=== PATIENT | female | born 1985 ===

== ENCOUNTER 2016-07-01 16:33 | Emergency (ER) | payer SELFPAY ==
[2016-07-01 16:45] VITALS: BMI 24.7
--- NOTE | 2016-07-01 17:35 | OBHP ---
Datetime: 07/01/2016 17:15 IP Adm Impression: , intrauterine IP Admit Plan: Discharge home Admit Comment, IP Provider: IUP at 30w c/o feeling nausea since yesterday. She had episode of vomiting. No abd pain. Tolerated PO fluids - water and juice today. No CTX; no VB; +FM PMH: denies PSH: denies NKA PSoH denies smoking ETOH drugs care CF denies complications EDC September 10 A: IUP at 30w gastroenteritis PLAN: PO fluids...tolerated...will send home... If increased symtpoms and cannot tolerate she will come back. labor isntructions...follow up CF as scheduled Pelvic Type - PN: Not Done Extremities - PN: Normal Abdomen - PN: Normal Back - PN: Normal Breast - PN: Normal Lungs - PN: Normal Heart - PN: Normal Thyroid - PN: Normal Neurologic - PN: Normal HEENT - PN: Normal General - PN: Normal FHR - Baseline A Provider: 150 Contraction Comments Provider: none Comments, ACOG Physical Exam: ROS: General: no fatigue no weakness HEENT: no SANTAMARIA; no visual dist CV: no CP; no palpitaions Resp: no OSb; no cough GI: Some N/V; no diarrhea : No F/U/D MS: no joint pain Pool Provider: Negative IP Hx Assessment: The History has been Reviewed and is Current EGA AdmitDate IP: 30.0 Vital Signs Provider: Reviewed IP Chief Complaint: Other NICHD Variability Prov Fetus A: Moderate 6-25bpm NICHD Accel Fetus A IP Provider: 15X15 FHR Category Provider Fetus A: Category I NICHD Decel Fetus A IP Provider: None Genitourinary Exam: Normal DTRs - PN: Not Done
--- NOTE | 2016-07-01 17:37 | OBDCSUM ---
Datetime: 07/01/2016 17:13 Discharged to, Provider: Home Follow up at, Provider: [facility] Disch Instr Activity: Normal activity Disch Instr Diet: Regular Discharge Time: 07/01/2016 17:19 Follow up in weeks, Provider: 07/08/16 Disch Referrals: None Discharge Diagnosis Prov Other: Gastroenteritis
== END 2016-07-01 17:41 | disposition home or self-care (01) ==
LOC: H.EROB2 16:33
DX: O47.03 False labor before 37 completed weeks of gestation, third trimester (principal); Z3A.30 30 weeks gestation of pregnancy

== ENCOUNTER 2016-08-20 23:54 | Emergency (ER) | payer SELFPAY | END 2016-08-21 01:25 | disposition home or self-care (01) | LOC: H.EROB2 23:54 | DX: O47.1 False labor at or after 37 completed weeks of gestation (principal); Z3A.38 38 weeks gestation of pregnancy ==

== ENCOUNTER 2016-09-11 20:45 | Emergency (ER) | payer SELFPAY | END 2016-09-11 21:45 | disposition home or self-care (01) | LOC: H.EROB2 20:45 | DX: O47.1 False labor at or after 37 completed weeks of gestation (principal); O48.0 Post-term pregnancy; Z3A.40 40 weeks gestation of pregnancy ==

== ENCOUNTER 2016-09-11 23:56 | Inpatient (IN) | payer MEDICAID, SELFPAY ==
[2016-09-12 00:30] VITALS: BMI 23.2
[2016-09-12] MEDS ORDERED: Lactated Ringer's 1,000 ML IV SCH ×3 (00:30→22:29)
[2016-09-12] MEDS: Lactated Ringer's 1,000 ML IV SCH ×3 (01:48→09:45)
[2016-09-12] MEDS ORDERED: Nalbuphine 20 mg/ml Inj (1 ml) IVP PRN (04:17)
[2016-09-12] MEDS ORDERED: Nalbuphine 20 mg/ml Inj (1 ml) ONE (04:25)
[2016-09-12 05:01] VITALS: RESP 18
[2016-09-12 06:05] LABS: BASO # 0.1 K/uL (0.0-0.2); BASO % 0.7 % (0.0-2.0); EOS # 0.1 K/uL (0.0-0.7); EOS % 0.7 % (0.0-4.0); HEMATOCRIT 39.8 % (34.0-47.0); LYMPH # 2.4 K/uL (1.0-4.3); LYMPH % 26.3 % (20.0-40.0); MEAN CELL VOLUME 91.1 fl (81.0-99.0); MEAN CORPUSCULAR HEMOGLOBIN 29.8 pg (27.0-31.0); MEAN CORPUSCULAR HGB CONC 32.7 g/dL (33.0-37.0); MEAN PLATELET VOLUME 11.3 fl (7.2-11.7); MONO # 0.5 K/uL (0.0-0.8); MONO % 6.1 % (0.0-10.0); NEUT # 5.9 K/uL (1.8-7.0); NEUT % 66.2 % (50.0-75.0); NRBC % 0.1 % (0.0-0.0); RED CELL DISTRIBUTION WIDTH 14.2 % (11.5-14.5)
[2016-09-12] MEDS ORDERED: Fentanyl/Bupivacaine HCl 250 ML EPI ONE (07:49)
[2016-09-12] MEDS ORDERED: Bupivacaine HCl 0.25% PF (10 ml) Inj ONE (07:49)
[2016-09-12] MEDS ORDERED: ePHEDrine 50 mg/ml Inj ONE (08:07)
--- NOTE | 2016-09-12 09:53 | OBHP ---
Datetime: 09/12/2016 04:20 IP Adm Impression: Term, intrauterine IP Admit Plan: Admit to unit; Initiate labor protocol Admit Comment, IP Provider: This is a 30 y/o at 40.2 weeks of GA with a LION 09/10/16 by LMP an d confirmed by 13 week US, complaining of CTX that began 8 hours ago. Pt was observed for [address] Xs now occurs every 4 minutes and 10/10 intensity. Pt reports pain is untolerable and requesting medi cation. + FM. Pt denies H/A, visual disturbances, vaginal bleeding, LOF or dysuria. NKDA PMHx: denied. PSHx: denied. OBHx: . SHx: No tobacco, alcohol or recreational drugs. A_P: IUP at 40.2 weeks GA with intense CTXs in latent labor. Pt will be admitted. Nubain ordered for pain management. Case discussed with Dr Sy OB outside salesperson. Negrito Simon PGY-1 Addendum: Patient had JOSAFAT. During observation, contractions become more intense and increasing in frequency . Patient requesting pain medication. Level of intensity, plan for admission for management of labor. Discussed with patient and all patient questions answered. Yossi Pelvic Type - PN: Adequate Extremities - PN: Normal Abdomen - PN: Normal Back - PN: Normal Lungs - PN: Normal Heart - PN: Normal Neurologic - PN: Normal HEENT - PN: Normal General - PN: Normal FHR - Baseline A Provider: 150 Gestation - Est Wks by US: 40.2 EGA AdmitDate IP: 40.3 IP Chief Complaint: Uterine contractions NICHD Variability Prov Fetus A: Moderate 6-25bpm NICHD Accel Fetus A IP Provider: 15X15 FHR Category Provider Fetus A: Category I NICHD Decel Fetus A IP Provider: None Dilatation, Provider: 1 Effacement, Provider: 0 Station, Provider: -3 Genitourinary Exam: Normal Datetime: 09/12/2016 00:32 Thyroid - PN: Normal Vital Signs Provider: Reviewed DTRs - PN: Not Done Datetime: 09/11/2016 21:35 Breast - PN: Normal Datetime: 08/21/2016 01:19 Membranes, Provider: Intact Comments, ACOG Physical Exam: examination was in presence of a marine operations coordinator. bimanual exam: cervix not dilated and no effacement and -3 station. Pool Provider: Negative
[2016-09-12] MEDS ORDERED: Oxytocin 30 units/LR 500ML 30 U/500 ML BAG IV ONE (10:36)
[2016-09-12] MEDS ORDERED: ceFAZolin 2 GM in Sodium Chloride 0.9% 100 ML IVPB ONE (17:02)
[2016-09-12] MEDS ORDERED: Lidocaine 2% PF (10 ml) Amp ONE (20:02)
[2016-09-12] MEDS ORDERED: Bupivacaine HCl 0.5% PF (30 ml) Inj ONE (20:03)
[2016-09-12] MEDS ORDERED: Ketamine 50 mg/ml Inj (10 ml) ONE (20:26)
[2016-09-12] MEDS ORDERED: Midazolam 2 MG/2 ML VIAL ONE ×2 (20:29→20:31)
[2016-09-12] MEDS ORDERED: Morphine 1 mg/ml preservative-free Inj(Duramorph) ONE (21:03)
[2016-09-12] MEDS ORDERED: Oxycodone/Acetaminophen 5/325 mg Tab PO PRN (21:38)
[2016-09-12] MEDS ORDERED: Oxytocin 30 units/LR 500ML 30 U/500 ML BAG IV SCH ×2 (21:38→22:29)
[2016-09-13 00:37] VITALS: BP 128/81; PULSE 103; O2SAT 96
[2016-09-13] MEDS ORDERED: Simethicone 80 mg Chewtab PO PRN (07:02)
[2016-09-13 07:47] LABS: HEMATOCRIT 32.8 % (34.0-47.0); MEAN CELL VOLUME 90.4 fl (81.0-99.0); MEAN CORPUSCULAR HEMOGLOBIN 30.8 pg (27.0-31.0); MEAN CORPUSCULAR HGB CONC 34.1 g/dL (33.0-37.0); RED CELL DISTRIBUTION WIDTH 14.3 % (11.5-14.5); WHITE BLOOD COUNT 15.8 K/uL (4.8-10.8)
--- NOTE | 2016-09-13 07:57 | OP ---
PROCEDURE DATE: 09/12/2016 PREOPERATIVE DIAGNOSIS: Intrauterine in 40 plus weeks, maternal request for primary , declined further trial of labor. POSTOPERATIVE DIAGNOSIS: Intrauterine in 40 plus weeks, maternal request for primary , declined further trial of labor. OPERATION PERFORMED: Primary left transverse section by Pfannenstiel skin incision. SURGEON: Dr. Eric Felder. SENIOR ARCHITECT/DESIGN MANAGER: Dr. Otero. TYPE OF ANESTHESIA: Epidural. ANESTHESIA ADMINISTERED BY: Dr. Lopez. OPERATIVE FINDINGS: Male infant. Vertex presentation. Apgars 9 and 9, weighing 3740 grams, normal uterus, tubes, and ovaries were identified. ESTIMATED BLOOD LOSS: 800 mL. URINE OUTPUT: Morales catheter put out approximately 350 mL of clear urine. IV FLUIDS: The patient received approximately 1 liter D5 OR intraoperatively. COMMENT: The patient notified by nurse. The patient no longer wanted to labor and was requesting primary delivery. I discussed the risks, benefits and alternatives of both vaginal delivery and section and after a thorough discussion, the patient declined trial of labor and opted for primary . Dr. Otero was the video production assistant of the procedure. He was instrumental in the care of the patient. He help create exposure, obtain hemostasis, he was helpful in delivering the and closure of the patient. Procedure would not had been possible without his assistance. DESCRIPTION OF PROCEDURE: After informed consent was obtained, the patient was taken to the operating room where epidural anesthesia was noted to be adequate. The patient was then prepped and draped in the usual sterile fashion. A Pfannenstiel skin incision was then made with the scalpel and carried down the underlying layer of fascia. The fascia was nicked in the midline. The fascial incision was then extended laterally with the curved Michaels scissors. The superior aspect of the fascial incision was then grasped with Partha clamps and elevated up and the rectus muscles were dissected off using both sharp and blunt dissection. Attention was then turned to the inferior aspect of the fascial incision, which in similar fashion was grasped with Partha clamps, elevated up and the rectus muscles were dissected off using both sharp and blunt dissection. The rectus muscles were then in the midline. The peritoneum identified and entered sharply with the Metzenbaum scissors. The peritoneal incision was then extended superiorly and inferiorly with good visualization of the bladder. The bladder blade was then inserted. The vesicouterine peritoneum was identified and entered sharply with the Metzenbaum scissors. The incision was then extended laterally and the bladder flap was created digitally. The bladder blade was then inserted and a low transverse incision was made with the scalpel. The uterine incision was then extended laterally with a bandage scissors. The 's head was then delivered atraumatically. The nose and mouth were suctioned to . The cord was clamped and cut. The infant was handed off to waiting pediatricians. The placenta was removed manually. The uterus was exteriorized and cleared of all clots and debris. The uterine incision was repaired with 0-Vicryl in a running locked fashion. The second layer of the same suture was used to obtain excellent hemostasis. The abdomen was then copiously irrigated. The irrigant was removed with a suction device. The uterus was returned to the abdomen. The gutters were cleared of all clots and debris. The uterine incision was reexamined, hemostasis was noted. The peritoneum was then closed with 2-0 Vicryl in a running fashion. The muscle was reapproximated with 0-Vicryl in an interrupted fashion. The fascia was closed with 0-Vicryl in a running fashion. The skin was closed with 4-0 needle. All sponge, lap, needle, and instrument counts were correct x2 and the patient was taken to the recovery room in awake in stable condition. Eric Felder MD
[2016-09-13] MEDS: Oxycodone/Acetaminophen 5/325 mg Tab PO PRN ×3 (08:31→20:10)
[2016-09-13] MEDS ORDERED: Docusate-Senna 50 mg-8.6 mg Tab PO SCH (22:00)
[2016-09-14] MEDS: Oxycodone/Acetaminophen 5/325 mg Tab PO PRN ×4 (00:09→20:03)
[2016-09-14] MEDS ORDERED: Docusate-Senna 50 mg-8.6 mg Tab PO SCH (08:32)
[2016-09-14 09:08] VITALS: TEMP 98.2
--- NOTE | 2016-09-14 10:43 | OBPPN ---
Datetime: 09/14/2016 08:15 PP Pain Prov: Within normal limits PP Nausea Prov: Denies PP Flatus Prov: Yes PP BM Prov: No PP Breasts Prov: Normal PP Heart Prov: Normal PP Lungs Prov: Normal PP Abdomen/Uterus Prov: Normal PP Lochia Prov: Normal PP Vulva/Perineum Prov: Normal PP CVA Tenderness Prov: Normal PP Extremities Prov: Normal PP C/S Incision Prov: Normal PP Progress Prov: Normal PP Comments Phys Exam Prov: not acute distress Lungs CTA B/L RRR, S1S2 Abd: Soft, uterus umb level, not distended. BS+. Incision clean and dry No calf tenderness Alert and oriented PP Impression Prov: Normal progression PP Plan Prov: Continue present management PP Progress Note Prov: S: Patient seen at bedside on POD2 in not acute distress. Denies CP, SOB, tracey f pain, palpitations, dizziness, nausea or vomiting. Lochia is less than menses. Pain controlled with pain meds. Tolerating PO diet well. No Flatus or BM yet. Breast and bottle feeding. C/O Bloating PE: See above A_P: 30 y/o in POD2 uncomplicated -C/w current plan -Motrin and percocet PRN for pain -Reg diet -Encourage ambulation and -Anticipated DC 09/15/16 Chance Carmen PGY2 The patient was seen with the resident and I agree with the notes Anticipate discharge in a.m. IP PP Procedures: None Vital Signs Provider PP: Reviewed; Within Normal Limits
[2016-09-15] MEDS: Oxycodone/Acetaminophen 5/325 mg Tab PO PRN ×2 (04:30→11:25)
--- NOTE | 2016-09-15 13:21 | OBDCSUM ---
Datetime: 09/15/2016 11:20 Discharged to, Provider: Home Follow up at, Provider: [facility] Disch Instr Activity: May be up to bathroom; May be up for meals; May Shower Disch Instr Diet: Regular Discharge Instructions, Provider: Specific instructions as noted Discharge Diagnosis, Provider: Term Delivered Discharge Time: 09/15/2016 12:00 Follow up in weeks, Provider: 1 week-10d Disch Referrals: None Discharge Instruct Comment, Prov: postop Contraception discussed, Prov: Yes Disch Activity Restrictions: No exercising; No lifting; No driving; No sexual activity; Nothing in v agina - [place], tampons, douche Discharge Comment, Provider: Encourage Ibuprofen 600 mg 1 tablet every 6 hours as neded for moderate pain Percocet 5/325mg 1 tab every 6 hours as needed if severe pain Follow up at your clinic in 1 week-10d. Contraception after Delivery: Undecided
--- NOTE | 2016-09-15 13:21 | OBPPN ---
Datetime: 09/15/2016 11:12 PP Nausea Prov: Denies PP Flatus Prov: Yes PP BM Prov: Yes PP Breasts Prov: Normal PP Heart Prov: Normal PP Lungs Prov: Normal PP Abdomen/Uterus Prov: Normal PP Lochia Prov: Normal PP Vulva/Perineum Prov: Normal PP CVA Tenderness Prov: Normal PP Extremities Prov: Normal PP C/S Incision Prov: Normal PP Progress Prov: Normal PP Comments Phys Exam Prov: not acute distress Lungs CTA B/L RRR, S1S2 Abd: Soft, uterus umb level, not distended. BS+. Incision clean and dry. steri-strips intact. no s igns of infection. No calf tenderness Alert and oriented PP Impression Prov: Normal progression PP Plan Prov: Discharge PP Progress Note Prov: 30 yo now on POD 3 seen at bed side and not acute distress. Denies CP, SOB, calf pain, palpitations, dizziness, nausea or vomiting. Lochia is less than menses. Pain control led with pain meds. Tolerating PO diet well. Pt reports +BM and flatus. Breast and bottle feeding. PE: See above A_P: 30 y/o in POD3 uncomplicated -Motrin and percocet PRN for pain -Reg diet -Encourage ambulation and -Discharge to home today. Sultan Lemon, PGY-1 OBH ADDENDUM: pt seen _ examined by me. agree with above assessment and plan. - benefits of reinforced. IP PP Procedures: None Vital Signs Provider PP: Reviewed
--- NOTE | 2016-09-17 09:02 | OBPPN ---
Datetime: 09/13/2016 07:47 PP Progress Note Prov: This is 30 y/o now who had a on 09/12/16 at 20:18 due to arres t of dilation. Pt evaluated ob bedside and feeling well. Pt afebrile, tolerating PO and trying breast feeding. Pain is tolerable with medications. Pt has NOT try to abulate yet. Pt denies H/A, CP, SOB, d ysuria, passing gasses and bowel movement. O: VS WNL. PE: Gen: A_O, resting comfortable on bed, NAD. Lungs: CTAB, No W/R/R. CV: RRR, S1 and S2 present. ABD: BS +, firm fundus below umbilicus, dressing is clean, dry and intact. EXT: non-tender calves. A_P: 30 y/o F POD 1, S/P . pt feeling well. consult offered. Will continue post-C section care. Pt encouraged to breast feed and ambulate. Negrito Simon PGY-1. Late entry for September 13 23:00pm OB Hospitalist note: This pt was seen and examined by me. Agree with above note. PADMINI
--- NOTE | 2016-09-24 13:41 | OBDS ---
DELIVERY PERSONNEL Delivery Doctor: Rena Felder MD Hvac Project Manager: Shakila David RN Anesthesiologist: Ngozi Lopez MD Resident: Aurora KESSLER MATERNAL INFORMATION Delivery Anesthesia: Epidural Medications in Delivery: Pitocin Estimated Blood Loss (ml): 800 Placenta Cultured: No Maternal Complications: None Provider Comments: See operative report LABOR SUMMARY EDC: 09/09/2016 00:00 No. Babies in Womb: 1 Attempted: No Labor Anesthesia: Epidural LABOR INFORMATION Reason for Induction: Not Applicable Onset of Labor: 09/11/2016 16:00 Oxytocin: Augmentation Group B Beta Strep: Negative Antibiotics # of Doses: 1 Antibiotics Time of Last Dose: 1930 Steroids Given: None Reason Steroids Not Administered: Not Applicable MEMBRANES Membranes Rupture Method: Artificial Rupture of Membranes: 09/12/2016 10:33 Length of Rupture (hrs): 9.92 Amniotic Fluid Color: Light Meconium Amniotic Fluid Amount: Moderate Amniotic Fluid Odor: Normal STAGES OF LABOR Stage 3 hrs: 0 Stage 3 min: 1 Total Time in Labor hrs: 28 Total Time in Labor min: 29 CSECTION DELIVERY Primary Indication: Other Other Primary Indication: mother's request CSection Urgency: Elective CSection Incidence: Primary Labor: Labor Elective: Elective CSection Incision: Lower Uterine Transverse BABY A INFORMATION Delivery Date/Time: 09/12/2016 20:28 Method of Delivery: Born in Route : No : N/A Forceps: N/A Vacuum Extraction: N/A Shoulder Dystocia : No SHOULDER DYSTOCIA BABY A Delivery Date/Time: 09/12/2016 20:28 PRESENTATION/POSITION BABY A Presentation: Cephalic PLACENTA INFORMATION BABY A Placenta Delivery Time : 09/12/2016 20:29 Placenta Method of Delivery: Expressed Placenta Status: Delivered SCORES BABY A Heart Rate 1 min: >100 bpm Resp Effort 1 min: Good Cry Reflex Irritability 1 min: Cough or Sneeze or Pulls Away Muscle Tone 1 min: Active Motion Color 1 min: Body [place], Extremities Blue Resuscitation Effort 1 min: Tactile Stimulation SCORE 1 MIN: 9 Heart Rate 5 min: >100 bpm Resp Effort 5 min: Good Cry Reflex Irritability 5 min: Cough or Sneeze or Pulls Away Muscle Tone 5 min: Active Motion Color 5 min: Body [place], Extremities Blue Resuscitation Effort 5 min: N/A SCORE 5 MIN: 9 INFANT INFORMATION BABY A Gestational Age at Delivery: 40.3 Gestational Status: Term Outcome : Liveborn Infant Condition : Stable Sex: Male IDENTIFICATION/MEDS BABY A ID Band Number: [id number] ID Band Location: Left Leg; Left Arm WEIGHT/LENGTH BABY A Infant Birthweight (gms): 3740 Weight (lb): 8 Weight (oz): 4 CORD INFORMATION BABY A No. Cord Vessels: 3 Nuchal Cord : N/A Cord pH Baby Arterial: n/a Cord pH Baby Venous: n/a Cord Blood Taken: Yes Suction: None ASSESSMENT BABY A Infant Complications: Extended Tachycardia Physical Findings at Delivery: Other Physical Findings Other: small ear hole Infant Respirations: Appears Normal Cooperative Extension Agent/ALS Called : No Infant Care By: Autumn/Dr Fuentes Transferred To: [facility]
--- NOTE | 2016-10-18 08:05 | OBHP ---
Datetime: 09/12/2016 04:20 EGA AdmitDate IP: 40.3
== END 2016-09-15 15:00 | disposition home or self-care (01) | DRG 766 ==
LOC: H.EROB2 23:56 → H.L&D 09-12 04:14 → H.OB/GYN 09-12 23:30
PROVIDERS: ADMIT Obstetrics & Gynecology; ATTEND Obstetrics & Gynecology
PROC: 10D00Z1 Extraction of Products of Conception, Low, Open Approach (ICD-10-PCS; principal; 2016-09-12)
PROC: 4A1HXCZ Monitoring of Products of Conception, Cardiac Rate, External Approach (ICD-10-PCS; 2016-09-12)
DX: O48.0 Post-term pregnancy (principal); O62.1 Secondary uterine inertia; Z3A.40 40 weeks gestation of pregnancy; Z37.0 Single live birth

== ENCOUNTER 2016-10-01 15:17 | Emergency (ER) | payer SELFPAY ==
[2016-10-01 15:18] VITALS: BMI 23.2
[2016-10-01 15:27] VITALS: BP 118/72; PULSE 82; RESP 16; TEMP 98; O2SAT 100
--- NOTE | 2016-10-01 15:46 | ED PDOC ---
HPI: Psych/Substance Abuse Time Seen by Provider: 10/01/16 15:29 Chief Complaint (Nursing): Psychiatric Evaluation Chief Complaint (Provider): Crisis evaluation History Per: Patient, Health Professor (Korean video damage appraiser Evelia #[phone]) History/Exam Limitations: no limitations Onset/Duration Of Symptoms: Days Current Symptoms Are (Timing): Still Present Suicide/Self Injury Attempted (Context): None Modifying Factor(s): None Additional Complaint(s): The patient is a 30 y/o female, 2 weeks post-, sent to the ED from [facility] for a crisis evaluation. Patient states she completed a questionnaire about depression at the clinic and was informed to come here. She does admit to feeling depressed but denies any suicidal ideation, homicidal ideation. She offers no medical complaints. PCP: [facility] Past Medical History Reviewed: Historical Data, Nursing Documentation, Vital Signs Vital Signs: Last Vital Signs Temp 98.0 F 10/01/16 15:21 Pulse 82 10/01/16 15:21 Resp 16 10/01/16 15:21 BP 118/72 10/01/16 15:21 Pulse Ox 100 10/01/16 15:21 - Medical History PMH: Depression - Surgical History Surgical History: No Surg Hx - Family History Family History: States: No Known Family Hx - Living Arrangements Living Arrangements: With Family - Social History Current smoker - smoking cessation education provided: No Alcohol: None Drugs: Denies - Home Medications Home Medications: Ambulatory Orders Medication Instructions Recorded Vit Calc,Iron,Folic 1 tab PO DAILY 09/12/16 [ Vitamins] Ibuprofen [Motrin Tab] 600 mg PO Q6H PRN #30 tab 09/15/16 oxyCODONE/Acetaminophen [Percocet 1 tab PO Q6 PRN #20 tab 09/15/16 5/325 mg Tab] - Allergies Allergies/Adverse Reactions: Allergies Allergy/AdvReac Type Severity Reaction Status Date / Time No Known Allergies Allergy Verified 09/12/16 05:00 Review of Systems ROS Statement: Except As Marked, All Systems Reviewed And Found Negative Psych: Positive for: Depression. Negative for: Suicidal ideation (denies suicidal or homicidal ideation) Physical Exam - Reviewed Nursing Documentation Reviewed: Yes Vital Signs Reviewed: Yes - Physical Exam Appears: Positive for: Well, Non-toxic, No Acute Distress Head Exam: Positive for: ATRAUMATIC, NORMAL INSPECTION, NORMOCEPHALIC Skin: Positive for: Normal Color. Negative for: Rash Eye Exam: Positive for: Normal appearance Cardiovascular/Chest: Positive for: Regular Rate, Rhythm Respiratory: Positive for: Normal Breath Sounds. Negative for: Respiratory Distress Neurologic/Psych: Positive for: Alert, Oriented. Negative for: Motor/Sensory Deficits - ECG O2 Sat by Pulse Oximetry: 100 (RA) Pulse Ox Interpretation: Normal Medical Decision Making Medical Decision Making: Time: 1540 Impression: 30 y/o female here for crisis evaluation Plan: --Crisis evaluation As per crisis counselor and psychiatrist transportation equipment painter Dr. Pedroza, patient does not meet criteria for admission and is stable for discharge. Patient was given resources for outpatient follow up. Scribe Attestation: Documented by Sun Phan acting as a scribe for LES Carcamo Provider Attestation: All medical record entries made by the Scribe were at my direction and personally dictated by me. I have reviewed the chart and agree that the record accurately reflects my personal performance of the history, physical exam, medical decision making, and the department course for this patient. I have also personally directed, reviewed, and agree with the discharge instructions and disposition. Disposition - Clinical Impression Clinical Impression: Adjustment disorder - Patient ED Disposition Is Patient to be Admitted: No Counseled Patient/Family Regarding: Diagnosis, Need For Followup - Disposition Referrals: [facility] [Outside] Disposition: Routine/Home Disposition Time: 16:54 Condition: STABLE Additional Instructions: Follow up as directed. Instructions: Mood Disorders (ED) Forms: [employer] (Korean) Print Language: TRISTANIAN
== END 2016-10-01 17:22 | disposition home or self-care (01) ==
LOC: H.ER 15:17
DX: F43.20 Adjustment disorder, unspecified (principal); F32.9 Major depressive disorder, single episode, unspecified